=== PATIENT | female | born 1980 | race Caucasian/White ===

== ENCOUNTER 2020-09-01 14:08 | Emergency (ER) | payer SELFPAY ==
[2020-09-01] MEDS ORDERED: ACETAMINOPHEN WITH CODEINE #3 TABLET PO ONE (14:19)
[2020-09-01 14:22] VITALS: BP 184/90
--- NOTE | 2020-09-01 14:26 | ER Document Report ---
HPI - HPI Patient complains to provider of: toothache Time Seen by Provider: 09/01/20 14:14 Pain Level: 4 Notes: 40-year-old female to the emergency department with complaints of left lower facial swelling and tooth ache that is been ongoing for the past several days. She states gotten worse in the past 2 to 3 days. She states that she has been applying Orajel and trying to take [id number] pain medicine without a lot of relief. She states she knows she needs to see a dentist and have several of her teeth extracted. She has had a dental abscess in the past of this year. She denies any fevers or chills. Denies any difficulty breathing. She does smoke. She also states that she drinks Mountain Dew quite frequently. - ROS Systems Reviewed and Negative: Yes All other systems reviewed and negative - CONSTITUTIONAL Constitutional: DENIES: Fever, Chills - EENT EENT: REPORTS: Ear Pain. DENIES: Sore Throat, Congestion Notes: Left lower jaw swelling and dental pain radiates into the ear - NEURO Neurology: REPORTS: Headache Notes: Tooth ache radiating to the head - CARDIOVASCULAR Cardiovascular: REPORTS: Chest pain - RESPIRATORY Respiratory: DENIES: Trouble Breathing, Coughing - GASTROINTESTINAL Gastrointestinal: DENIES: Abdominal Pain, Nausea, Patient vomiting, Diarrhea - MUSCULOSKELETAL Musculoskeletal: DENIES: Extremity pain, Back Pain, Neck Pain, Swelling - DERM Skin Color: Normal Skin Problems: None Past Medical History - General Information source: Patient - Social History Smoking Status: Current Every Day Smoker Chew tobacco use (# tins/day): No Frequency of alcohol use: None Drug Abuse: None Family History: Reviewed & Not Pertinent Patient has homicidal ideation: No Vertical Provider Document - CONSTITUTIONAL Agree With Documented VS: Yes General Appearance: WD/WN, No Apparent Distress - HEENT HEENT: Atraumatic, Normocephalic, PERRLA Notes: Dentition is very severe throughout. In the left lower jaw there are several teeth that are eroded and decayed down into the gumline. There is tenderness and edema to the left lower jaw. There is no fluctuance here. There is no Yeison's angina. No voice changes. Airway is grossly patent - NECK Neck: Normal Inspection, Supple - RESPIRATORY Respiratory: Breath Sounds Normal, No Respiratory Distress. negative: Rales, Rhonchi, Wheezing - CARDIOVASCULAR Cardiovascular: Regular Rate, Regular Rhythm, No Murmur - GI/ABDOMEN Gastrointestinal: Abdomen Soft, Abdomen Non-Tender, No Organomegaly - BACK Back: Normal Inspection - MUSCULOSKELETAL/EXTREMETIES Musculoskeletal/Extremeties: MAEW, FROM, Non-Tender - NEURO Level of Consciousness: Awake, Alert, Appropriate - DERM Integumentary: Warm, Dry Course - Re-evaluation Re-evalutation: 09/01/20 Impression: Toothache with likely evolving dental abscess. Did offer to drain the abscess. However the patient declined. Will start on antibiotics, mouthwash, pain medicine. Patient agrees with the plan. I have encouraged her to see a dentist and will give her several options to follow-up with. Patient agrees with the plan; she is urged to return if any worsening symptoms. Discharge - Discharge Clinical Impression: Dental abscess, Dental caries Condition: Stable Disposition: HOME, SELF-CARE Instructions: Dentist, Toothache ([facility], [facility]) Additional Instructions: Complete all antibiotics without fail. Take medicines as prescribed. Follow-up with dentist without fail. Return if any worsening symptoms such as worsening facial swelling, drooling, shortness of breath or any other concerns. Decrease and/or stop drinking Mountain Dew and smoking. Prescriptions: Clindamycin HCl 300 mg PO TID #30 capsule Ibuprofen [Motrin 800 mg Tablet] 800 mg PO Q8H PRN #30 tab PRN Reason: Chlorhexidine Gluconate [Peridex] 15 ml MM TID #420 ml Acetaminophen with Codeine [Tylenol #3 Tablet] 1 each PO Q6H PRN #10 tablet PRN Reason: Referrals: [facility] [Provider Group] - Follow up in 3-5 days
== END 2020-09-01 14:35 | disposition home or self-care (01) ==
LOC: ER 14:08
DX: K04.7 Periapical abscess without sinus (principal); K03.2 Erosion of teeth; K02.9 Dental caries, unspecified; R07.9 Chest pain, unspecified; F17.200 Nicotine dependence, unspecified, uncomplicated
CPT/HCPCS: 99283